=== PATIENT | male | born 1980 | race American Indian/Alaskan Native ===

== ENCOUNTER 2017-08-14 18:19 | Emergency (ER) | payer MEDICAID ==
--- NOTE | 2017-08-14 19:21 | C.PDOC ---
History Of Present Illness 37-year-old male, presents to the emergency department with complaints of headache and dizziness. Patient states he stopped taking his blood pressure medications because he ran out. Denies nausea/vomiting, back pain, neck pain, shortness of breath, chest pain, numbness/weakness, or any other associated symptoms. No other complaints at this time. Chief Complaint (Nursing): Dizziness/Lightheaded History Per: Patient History/Exam Limitations: no limitations Past Medical History Reviewed: Historical Data, Nursing Documentation, Vital Signs Vital Signs: Last Vital Signs Temp 99.2 F 08/14/17 18:37 Pulse 96 H 08/14/17 19:53 Resp 15 08/14/17 19:53 BP 157/100 H 08/14/17 20:13 Pulse Ox 95 08/14/17 21:24 - Medical History PMH: Anemia (sICKLE CELL TRAIT), Diabetes, HTN, Hypercholesterolemia, Schizophrenia, Sickle Cell Disease (traits only) - [facility] Procedures SUTURE OF LIP LACERATION (08/08/14) Family History: States: No Known Family Hx - Social History Hx Tobacco Use: No Hx Alcohol Use: No Hx Substance Use: No - Immunization History Hx Tetanus Toxoid Vaccination: Yes Hx Influenza Vaccination: No Hx Pneumococcal Vaccination: No Review Of Systems Constitutional: Negative for: Fever, Chills Cardiovascular: Negative for: Chest Pain, Palpitations Respiratory: Negative for: Shortness of Breath Gastrointestinal: Negative for: Nausea, Vomiting Musculoskeletal: Negative for: Neck Pain, Back Pain Skin: Negative for: Rash Neurological: Negative for: Weakness, Numbness, Headache, Dizziness Physical Exam - Physical Exam Appears: Non-toxic, No Acute Distress Skin: Normal Color, Warm, Dry, No Rash Head: Normacephalic Eye(s): bilateral: PERRL Nose: Normal Oral Mucosa: Moist Lips: Normal Appearing Neck: Normal ROM, Supple Cardiovascular: Rhythm Regular, No Murmur Respiratory: Normal Breath Sounds, No Accessory Muscle Use Extremity: Normal ROM, No Deformity, No Swelling Neurological/Psych: Oriented x3, Normal Speech ED Course And Treatment - Laboratory Results Result Diagrams: 08/14/17 19:27 08/14/17 19:27 O2 Sat by Pulse Oximetry: 95 (RA) Pulse Ox Interpretation: Normal - CT Scan/US CT head Other Rad Studies (CT/US): Read By Radiologist, Radiology Report Reviewed CT/US Interpretation: EXAM: CT Head Without Intravenous Contrast. EXAM DATE/ TIME: Exam ordered 08/14/2017 7:11 PM. CLINICAL HISTORY: 37 years old, male; Signs and symptoms; Other: Headache with HTN. TECHNIQUE: Axial computed tomography images of the head/brain without intravenous contrast. All CT scans at. this facility use one or more dose reduction techniques, viz.: automated exposure control; ma/kV. adjustment per patient size (including targeted exams where dose is matched to indication; i.e. head);. or iterative reconstruction technique. Coronal and sagittal reformatted images were created and reviewed. COMPARISON: No relevant prior studies available. FINDINGS: Brain: Unremarkable. No hemorrhage. No significant white matter disease. No edema. Ventricles: Unremarkable. No ventriculomegaly. Bones/joints: Unremarkable. No acute fracture. Soft tissues: Unremarkable. Sinuses: Unremarkable as visualized. No acute sinusitis. Mastoid air cells: Unremarkable as visualized. No mastoid effusion. IMPRESSION:Normal head/brain CT. Thank you for allowing us to participate in the care of your patient. Dictated and Authenticated by: Rosalia Cortes MD. 08/14/2017 7:54 PM Eastern Time ([place] & [place]) Medical Decision Making Medical Decision Making: Plan: * CT Head * EKG * Bloodwork * Toradol * UA * Reassess and Disposition Disposition Counseled Patient/Family Regarding: Diagnosis - Disposition Referrals: [facility] [Outside] Disposition: HOME/ ROUTINE Disposition Time: 21:24 Condition: STABLE Prescriptions: Carvedilol [Coreg] 12.5 mg PO BID #30 tab MetFORMIN [glucoPHAGE] 500 mg PO DAILY #30 tab Naproxen 375 mg PO TIDPC #20 tablet Instructions: Type 2 Diabetes, High Blood Pressure (DC), Headache, Adult (DC) Forms: [employer] (Faroese) - POA Present On Arrival: None - Clinical Impression Clinical Impression: Headache, Hypertension, Diabetes mellitus - Scribe Statement The provider has reviewed the documentation as recorded by the Scribe (emanuel Poon) All medical record entries made by the Scribe were at my direction and personally dictated by me. I have reviewed the chart and agree that the record accurately reflects my personal performance of the history, physical exam, medical decision making, and the department course for this patient. I have also personally directed, reviewed, and agree with the discharge instructions and disposition.
[2017-08-14 19:30] LABS: BASO # 0.1 K/uL (0.0-0.2); BASO % 0.6 % (0.0-2.0); EOS # 0.1 K/uL (0.0-0.7); EOS % 0.9 % (0.0-4.0); HEMOGLOBIN 13.4 g/dL (12.0-18.0); LYMPH # 2.4 K/uL (1.0-4.3); LYMPH % 18.7 % (20.0-40.0); MEAN CELL VOLUME 77.7 fL (80.0-94.0); MEAN CORPUSCULAR HEMOGLOBIN 26.4 pg (27.0-31.0); MEAN CORPUSCULAR HGB CONC 33.9 g/dL (33.0-37.0); MONO % 7.6 % (0.0-10.0); NEUT # 9.1 K/uL (1.8-7.0); NEUT % 72.2 % (50.0-75.0); NRBC % 0.1 % (0.0-2.0); RBC 5.08 Mil/uL (4.40-5.90); RED CELL DISTRIBUTION WIDTH 13.2 % (11.5-14.5); WHITE BLOOD COUNT 12.7 K/uL (4.8-10.8)
[2017-08-14 19:42] LABS: ALB/GLOB RATIO 0.9 (1.0-2.1); ALBUMIN 3.4 g/dL (3.5-5.0); ALT/SGPT 19 U/L (21-72); AST/SGOT 14 U/L (17-59); BLOOD UREA NITROGEN 8 mg/dL (9-20); CALCIUM 8.7 mg/dl (8.6-10.4); GFR AFRICAN-AMERICAN > 60; GFR NON-AFRICAN AMERICAN > 60
[2017-08-14] MEDS ORDERED: (Novolin R) Insulin Human Regular 100 units/ml vial SC ONE (19:45)
--- NOTE | 2017-08-14 19:54 | CT ---
EXAM: CT Head Without Intravenous Contrast EXAM DATE/TIME: Exam ordered 08/14/2017 7:11 PM CLINICAL HISTORY: 37 years old, male; Signs and symptoms; Other: Headache with HTN TECHNIQUE: Axial computed tomography images of the head/brain without intravenous contrast. All CT scans at this facility use one or more dose reduction techniques, viz.: automated exposure control; ma/kV adjustment per patient size (including targeted exams where dose is matched to indication; i.e. head); or iterative reconstruction technique. Coronal and sagittal reformatted images were created and reviewed. COMPARISON: No relevant prior studies available. FINDINGS: Brain: Unremarkable. No hemorrhage. No significant white matter disease. No edema. Ventricles: Unremarkable. No ventriculomegaly. Bones/joints: Unremarkable. No acute fracture. Soft tissues: Unremarkable. Sinuses: Unremarkable as visualized. No acute sinusitis. Mastoid air cells: Unremarkable as visualized. No mastoid effusion. IMPRESSION: Normal head/brain CT.
[2017-08-14] MEDS ORDERED: (Novolin R) Insulin Human Regular 100 units/ml vial ONE (20:10)
[2017-08-14] MEDS ORDERED: Potassium Chloride 10 mEq ER Tab PO STA (20:22)
[2017-08-14] MEDS ORDERED: Potassium Chloride 10 mEq ER Tab PO ONE (20:32)
[2017-08-14 21:39] VITALS: BP 145/103; PULSE 88; RESP 17; TEMP 97.9; O2SAT 96
== END 2017-08-14 21:39 | disposition home or self-care (01) ==
LOC: C.ER 18:19
DX: I10 Essential (primary) hypertension (principal); E11.9 Type 2 diabetes mellitus without complications; R51 Headache; E87.6 Hypokalemia
CPT/HCPCS: 70450; 80053; 85025; 96374; 99285; J1885

== ENCOUNTER 2018-06-12 20:32 | Emergency (ER) | payer MEDICAID ==
--- NOTE | 2018-06-12 21:19 | C.PDOC ---
History Of Present Illness Patient presents to the ER with a complaint of SOB and chest pain intermittently for the past 3 days that worsens when he walks. He is noncomplaint with blood pressure and diabetes medication. Patient is speaking in complete sentences. Denies nausea, vomiting, fever or chills. Time Seen by Provider: 06/12/18 21:18 Chief Complaint (Nursing): Chest Pain History Per: Patient History/Exam Limitations: no limitations Onset/Duration Of Symptoms: Days (3), Intermittent Episodes Current Symptoms Are (Timing): Still Present Severity: Moderate Pain Scale Rating Of: 4 Recent travel outside of the [place]: No Additional History Per: Patient Past Medical History Reviewed: Historical Data, Nursing Documentation, Vital Signs Vital Signs: Last Vital Signs Temp 98.2 F 06/12/18 20:39 Pulse 117 H 06/12/18 20:39 Resp 20 06/12/18 20:39 BP 179/128 H 06/12/18 20:39 Pulse Ox 97 06/12/18 20:39 - Medical History PMH: Anemia (sICKLE CELL TRAIT), Asthma, Diabetes, HTN, Hypercholesterolemia, Schizophrenia, Sickle Cell Disease (traits only) - [facility] Procedures SUTURE OF LIP LACERATION (08/08/14) Family History: States: No Known Family Hx - Social History Hx Tobacco Use: No Hx Alcohol Use: No Hx Substance Use: Yes - Immunization History Hx Tetanus Toxoid Vaccination: No Hx Influenza Vaccination: No Hx Pneumococcal Vaccination: No Review Of Systems Constitutional: Negative for: Fever, Chills Cardiovascular: Positive for: Chest Pain Respiratory: Positive for: Shortness of Breath Gastrointestinal: Negative for: Nausea, Vomiting Neurological: Negative for: Weakness, Numbness Physical Exam - Physical Exam Appears: Non-toxic Skin: Warm, Dry Head: Normacephalic Eye(s): bilateral: Normal Inspection Oral Mucosa: Moist Neck: Trachea Midline, Supple Chest: Symmetrical, No Tenderness Cardiovascular: Rhythm Regular Respiratory: Decreased Breath Sounds, Rales, No Rhonchi, No Wheezing Gastrointestinal/Abdominal: Soft, No Tenderness, Other (Obese) Back: Normal Inspection Extremity: Pedal Edema (Bilateral trace) Extremity: Bilateral: Atraumatic Pulses: Left Dorsalis Pedis: Normal, Right Dorsalis Pedis: Normal Neurological/Psych: Oriented x3 Gait: Steady ED Course And Treatment - Laboratory Results Result Diagrams: 06/12/18 21:51 06/12/18 21:51 ECG: Interpreted By Me, Viewed By Me ECG Rhythm: Sinus Rhythm (112), Nonspecific Changes O2 Sat by Pulse Oximetry: 97 (Room air) Pulse Ox Interpretation: Normal - Radiology CXR: Interpreted by Me, Viewed By Me Progress Note: Blood work, CTA, EKG, and urinalysis ordered. Aspirin administered. Disposition Discussed With Dr.: Juanjose Villalta Jr. Comment: accepted the pt on his service and took over the care at 11:49 PM Doctor Will See Patient In The: ED Counseled Patient/Family Regarding: Studies Performed, Diagnosis - Disposition Disposition: HOSPITALIZED Disposition Time: :19 Condition: FAIR Forms: [employer] (Bulgarian) - Clinical Impression Clinical Impression: Chest pain, CHF (congestive heart failure) - Scribe Statement The provider has reviewed the documentation as recorded by the Scribe Scott Reynoso All medical record entries made by the Scribe were at my direction and personally dictated by me. I have reviewed the chart and agree that the record accurately reflects my personal performance of the history, physical exam, medical decision making, and the department course for this patient. I have also personally directed, reviewed, and agree with the discharge instructions and disposition. Decision To Admit - Pt Status Changed To: Hospital Disposition Of: Inpatient - Admit Certification Admit to Inpatient:: After my assessment, the patient will require hospitalization for at least two midnights. This is because of the severity of symptoms shown, intensity of services needed, and/or the medical risk in this patient being treated as an outpatient. - InPatient: Physician Admission Certification: I certify that this patient requires 2 or more midnights of care for the following reason:: After my assessment, the patient will require hospitalization for at least two midnights. This is because of the severity of symptoms shown, intensity of services needed, and/or the medical risk in this patient being treated as an outpatient. - . Bed Request Type: Telemetry Admitting Physician: Juanjose Villalta Jr. Patient Diagnosis: Chest pain, CHF (congestive heart failure)
[2018-06-12] MEDS ORDERED: Aspirin 325 mg EC Tablets PO STA (21:28)
[2018-06-12] MEDS ORDERED: Aspirin 325 mg EC Tablets PO ONE (21:38)
[2018-06-12] MEDS ORDERED: Iodixanol 320 MG/ML 100 ML BOTTLE IV ONE (21:44)
[2018-06-12 21:58] LABS: BASO # 0.1 K/uL (0.0-0.2); BASO % 1.1 % (0.0-2.0); EOS # 0.2 K/uL (0.0-0.7); EOS % 1.4 % (0.0-4.0); HEMOGLOBIN 12.7 g/dL (12.0-18.0); LYMPH # 3.1 K/uL (1.0-4.3); LYMPH % 27.8 % (20.0-40.0); MEAN CELL VOLUME 78.8 fL (80.0-94.0); MEAN CORPUSCULAR HEMOGLOBIN 26.6 pg (27.0-31.0); MEAN CORPUSCULAR HGB CONC 33.8 g/dL (33.0-37.0); MEAN PLATELET VOLUME 6.9 fL (7.2-11.7); MONO # 0.9 K/uL (0.0-0.8); MONO % 8.2 % (0.0-10.0); NEUT # 6.8 K/uL (1.8-7.0); NEUT % 61.5 % (50.0-75.0); RBC 4.77 Mil/uL (4.40-5.90); RED CELL DISTRIBUTION WIDTH 13.5 % (11.5-14.5)
[2018-06-12 22:10] LABS: ALB/GLOB RATIO 1.2 (1.0-2.1); ALBUMIN 3.8 g/dL (3.5-5.0); AST/SGOT 14 U/L (17-59); BLOOD UREA NITROGEN 17 mg/dL (9-20); CALCIUM 8.8 mg/dl (8.6-10.4); GFR NON-AFRICAN AMERICAN > 60; LIPASE 165 U/L (23-300)
[2018-06-12 22:17] LABS: ALT/SGPT < 6 U/L (21-72)
[2018-06-12 22:19] LABS: ABG ALLEN TEST POS; ARTERIAL BLOOD GAS HCO3 24.8 mmol/L (21-28); ARTERIAL BLOOD GAS O2 SAT 94.9 % (95-98); ARTERIAL BLOOD GAS PCO2 39 mm/Hg (35-45); ARTERIAL BLOOD GAS PH 7.41 (7.35-7.45); ARTERIAL BLOOD GAS PO2 59 mm/Hg (80-100); ARTERIAL BLOOD GAS TCO2 25.9 mmol/L (22-28)
[2018-06-12 22:21] LABS: B-TYPE NATRIURETIC PEPTIDE 3070 pg/mL (0-450)
[2018-06-12 23:57] LABS: URINE BACTERIA RARE (<OCC); URINE BILIRUBIN NEGATIVE (NEGATIVE); URINE BLOOD 1+ (NEGATIVE); URINE CLARITY Clear (Clear); URINE COLOR Straw (YELLOW); URINE GLUCOSE (UA) NORMAL (Normal); URINE LEUKOCYTE ESTERASE NEG Leu/uL (Negative); URINE PROTEIN 2+ mg/dL (NEGATIVE); URINE UROBILINOGEN NORMAL mg/dL (0.2-1.0)
--- NOTE | 2018-06-13 00:32 | CP.PCM.HP ---
History of Present Illness - History of Present Illness History of Present Illness: PGY-1 History and Physical for Dr. Villalta Patient is a 37 year old M with past medical history of HTN, HLD, DM, asthma, sickle cell trait, schizophrenia presenting to ED for intermittent chest pain, sob, dyspnea on exertion for the past 3 days. Chest pain is substernal, nonradiating, comes and goes. Patient denies any chest pain currently. Shortness of breath is worsened on physical exertion, also endorses orthopnea, sleeps with head propped on pillows and clothing sometimes. Of note, patient is noncompliant with BM and DM meds, states he has not refilled his meds for weeks. No fevers/chills, headaches, dizziness, syncope, changes in vision, palpitations, cough, abdominal pain, n/v/d/c, dysuria, or changes in stool. PMHx: HTN, HLD, DM, asthma, sickle cell trait, schizophrenia, medication noncompliance PSHx: none Allergies: NKDA Home Medications: Please call [facility] pharmacy, [facility] in AM to verify home meds FHx: unknown Social Hx: social drinker; smokes 1 ppd for several years, smokes marijuana "every 3 months", denies other illicit drug use PMD: Dr. Llamas Present on Admission - Present on Admission Any Indicators Present on Admission: Yes History of Uncontrolled Diabetes: Yes Review of Systems - Constitutional Constitutional: absent: Chills, Fever, Headache - EENT Eyes: absent: Change in Vision - Cardiovascular Cardiovascular: Chest Pain, Dyspnea, Dyspnea on Exertion, Orthopnea, Pedal Edema. absent: Diaphoresis, Lightheadedness, Syncope - Respiratory Respiratory: Dyspnea, Dyspnea on Exertion. absent: Cough, Hemoptysis, Wheezing, Stridor - Gastrointestinal Gastrointestinal: Bloating. absent: Abdominal Pain, Diarrhea, Nausea, Vomiting - Genitourinary Genitourinary: absent: Difficulty Urinating, Dysuria, Urinary Frequency, Urinary Urgency - Musculoskeletal Musculoskeletal: absent: Limited Range of Motion, Muscle Weakness, Numbness, Radiating Pain into Limb, Tingling - Integumentary Integumentary: As Per HPI - Neurological Neurological: absent: Dizziness, Numbness, Headaches, Sensory Deficit, Syncope, Tingling, Weakness - Psychiatric Psychiatric: As Per HPI. absent: Behavioral Changes - Endocrine Endocrine: As Per HPI. absent: Change in Body Appearance Past Patient History - Infectious Disease Hx of Infectious Diseases: None - Past Social History Smoking Status: Heavy Smoker > 10 Cigarettes Daily - CARDIAC Hx Hypercholesterolemia: Yes Hx Hypertension: Yes - PULMONARY Hx Asthma: Yes - ENDOCRINE/METABOLIC Hx Endocrine Disorders: Yes Hx Diabetes Mellitus Type 2: Yes - HEMATOLOGICAL/ONCOLOGICAL Hx Anemia: Yes (sICKLE CELL TRAIT) Hx Sickle Cell Disease: Yes (traits only) - PSYCHIATRIC Hx Schizophrenia: Yes Hx Substance Use: Yes - SURGICAL HISTORY Hx Surgeries: No - ANESTHESIA Hx Anesthesia: No Meds Allergies/Adverse Reactions: Allergies Allergy/AdvReac Type Severity Reaction Status Date / Time No Known Allergies Allergy Verified 06/12/18 20:42 Physical Exam - Constitutional Appears: Non-toxic, No Acute Distress - Head Exam Head Exam: ATRAUMATIC, NORMAL INSPECTION, NORMOCEPHALIC - Eye Exam Eye Exam: EOMI, Normal appearance Pupil Exam: NORMAL ACCOMODATION - ENT Exam ENT Exam: Mucous Membranes Moist, Normal Exam - Neck Exam Neck exam: Positive for: Full Rom, Normal Inspection. Negative for: Tenderness - Respiratory Exam Respiratory Exam: Decreased Breath Sounds, Rales, NORMAL BREATHING PATTERN. absent: Accessory Muscle Use, Rhonchi, Wheezes, Respiratory Distress, Stridor - Cardiovascular Exam Cardiovascular Exam: Tachycardia, +S1, +S2 - GI/Abdominal Exam GI & Abdominal Exam: Distended, Normal Bowel Sounds, Soft. absent: Firm, Guarding, Hernia, Rebound, Rigid, Tenderness Additional comments: obese - Extremities Exam Extremities exam: Positive for: normal capillary refill, normal inspection, pedal edema, pedal pulses present. Negative for: calf tenderness - Back Exam Back exam: NORMAL INSPECTION. absent: CVA tenderness (L), CVA tenderness (R) - Neurological Exam Neurological exam: Alert, CN II-XII Intact, Oriented x3 - Psychiatric Exam Psychiatric exam: Normal Affect, Normal Mood - Skin Skin Exam: Dry, Intact, Normal Color, Warm Results - Vital Signs Recent Vital Signs: Last Vital Signs Temp 98.2 F 06/12/18 20:39 Pulse 117 H 06/12/18 20:39 Resp 20 06/12/18 20:39 BP 179/128 H 06/12/18 20:39 Pulse Ox 97 06/13/18 00:01 - Labs Result Diagrams: 06/12/18 21:51 06/12/18 21:51 Labs: Laboratory Results - last 24 hr 06/12/18 06/12/18 06/12/18 21:51 21:51 21:51 WBC 11.0 H RBC 4.77 Hgb 12.7 Hct 37.6 MCV 78.8 L MCH 26.6 L MCHC 33.8 RDW 13.5 Plt Count 333 MPV 6.9 L Neut % (Auto) 61.5 Lymph % (Auto) 27.8 Menard % (Auto) 8.2 Eos % (Auto) 1.4 Baso % (Auto) 1.1 Neut # (Auto) 6.8 Lymph # (Auto) 3.1 Menard # (Auto) 0.9 H Eos # (Auto) 0.2 Baso # (Auto) 0.1 Puncture Site pCO2 pO2 HCO3 ABG pH ABG Total CO2 ABG O2 Saturation ABG Base Excess Moses Test ABG Potassium A-a O2 Difference Respiratory Index Glucose Lactate FiO2 Sodium 136 Potassium 3.6 Chloride 103 Carbon Dioxide 25 Anion Gap 11 BUN 17 Creatinine 1.3 Est GFR ( Amer) > 60 Est GFR (Non-Af Amer) > 60 Random Glucose 234 H Hemoglobin A1c 8.5 H Calcium 8.8 Total Bilirubin 0.4 AST 14 L ALT < 6 L D Alkaline Phosphatase 98 Troponin I 0.0840 NT-Pro-B Natriuret Pep 3070 H Total Protein 7.1 Albumin 3.8 Globulin 3.3 Albumin/Globulin Ratio 1.2 Lipase 165 Arterial Blood Potassium 06/12/18 22:15 WBC RBC Hgb Hct MCV MCH MCHC RDW Plt Count MPV Neut % (Auto) Lymph % (Auto) Menard % (Auto) Eos % (Auto) Baso % (Auto) Neut # (Auto) Lymph # (Auto) Menard # (Auto) Eos # (Auto) Baso # (Auto) Puncture Site Rradial pCO2 39 pO2 59 L HCO3 24.8 ABG pH 7.41 ABG Total CO2 25.9 ABG O2 Saturation 94.9 L ABG Base Excess 0.1 Moses Test Pos ABG Potassium 3.2 L A-a O2 Difference 42.0 Respiratory Index 0.7 Glucose 216 H Lactate 1.2 FiO2 21.0 Sodium 137.0 Potassium Chloride 105.0 Carbon Dioxide Anion Gap BUN Creatinine Est GFR ( Amer) Est GFR (Non-Af Amer) Random Glucose Hemoglobin A1c Calcium Total Bilirubin AST ALT Alkaline Phosphatase Troponin I NT-Pro-B Natriuret Pep Total Protein Albumin Globulin Albumin/Globulin Ratio Lipase Arterial Blood Potassium 3.2 L Assessment & Plan - Assessment and Plan (Free Text) Assessment: 37 year old AA male with pmhx of HTN, HLD, DM, asthma, schizophrenia presenting to ED with intermittent chest pain, MENDOZA, orthopnea x 3 days. Plan: Chest pain, r/o ACS -s/p ASA 81 mg x1 in ED -patient in no acute distress, denies cp currently -Trop x 1 negative; f/u serial FARSHAD panel q8h -EKG: sinus tachy at 112 bpm, biatrial enlargement, Rightward axis -f/u repeat EKG -f/u CXR -Chest CT ordered by ED to r/o PE -ASA 81 mg PO daily -Crestor 5 mg PO HS Worsening SOB, MENDOZA, orthopnea likely 2/2 CHF exacerbation -patient noncompliant with HTN/DM meds -s/p lasix 40 mg IVP x1 in ED -BNP 3070 -f/u ECHO -I/Os -keep head of bed elevated 45 degrees -Lasix 40 mg IVP daily -Coreg 12.5 mg PO BID -Losartan 25 mg PO daily -Aldactone 25 mg PO BID Uncontrolled DM -pt noncomplaint with meds -home metformin held -A1C 8.5 -ISS high dose -accuchecks ACHS -hypoglycemic protocol HTN -patient noncomplaint with meds; call pharmacy in AM to verify all meds -Losartain 25 mg PO daily -Aldactone 25 mg PO BID -Coreg 12.5 mg PO BID HLD -f/u lipid panel -Crestor 5 mg PO HS Hx of Schizophrenia -home Invega 156 IM qmonthly -pt states he already received dose for month Hx of Asthma -duonebs 3 mL q4 prn -O2 via NL prn PPx, Diet, Disposition -DVT ppx: scds, lovenox -GI ppx: not indicated -Diet: HHD, salt restriction -PT/OT on board Further recs as per Dr. Ambar Carreno DO, PGY-1
[2018-06-13] MEDS ORDERED: Dextrose 50% SYRINGE Inj (50 ml) IV PRN (01:29)
[2018-06-13] MEDS ORDERED: Glucagon Recombinant 1 mg Inj IM PRN (01:29)
[2018-06-13] MEDS ORDERED: Albuterol-Ipratrop 3 mg / 0.5 (3 ml) UD INH PRN (01:58)
[2018-06-13 04:57] LABS: BARBITURATES, UR NEGATIVE (NEGATIVE); BENZODIAZEPINES, UR NEGATIVE (NEGATIVE); OPIATES, UR NEGATIVE (NEGATIVE); PHENCYCLIDINE, UR NEGATIVE (NEGATIVE)
[2018-06-13 05:05] LABS: HDL CHOLESTEROL 38 mg/dL (30-70)
[2018-06-13 05:15] LABS: LDL CHOLESTEROL 241 mg/dL (0-129)
[2018-06-13 05:52] LABS: BASO # 0.1 K/uL (0.0-0.2); BASO % 0.7 % (0.0-2.0); EOS # 0.1 K/uL (0.0-0.7); HEMOGLOBIN 12.8 g/dL (12.0-18.0); LYMPH # 2.4 K/uL (1.0-4.3); LYMPH % 23.3 % (20.0-40.0); MEAN CELL VOLUME 78.4 fL (80.0-94.0); MEAN CORPUSCULAR HEMOGLOBIN 26.8 pg (27.0-31.0); MEAN CORPUSCULAR HGB CONC 34.2 g/dL (33.0-37.0); MEAN PLATELET VOLUME 7.4 fL (7.2-11.7); MONO # 1.1 K/uL (0.0-0.8); MONO % 10.6 % (0.0-10.0); NEUT # 6.7 K/uL (1.8-7.0); NEUT % 64.4 % (50.0-75.0); RBC 4.76 Mil/uL (4.40-5.90); RED CELL DISTRIBUTION WIDTH 13.4 % (11.5-14.5); WHITE BLOOD COUNT 10.4 K/uL (4.8-10.8)
[2018-06-13 06:21] LABS: CK-MB 0.86 ng/mL (0.0-3.38)
[2018-06-13] MEDS: (Novolin R) Insulin Human Regular 100 units/ml vial SC SCH ×2 (09:28→12:30)
[2018-06-13] MEDS ORDERED: (Novolin R) Insulin Human Regular 100 units/ml vial ONE ×2 (09:31→12:26)
[2018-06-13] MEDS ORDERED: Enoxaparin 40 mg Syringe SC SCH (10:00)
--- NOTE | 2018-06-13 10:38 | RAD ---
Date of service: 06/13/2018 HISTORY: chest pain COMPARISON: Include an with chest 08/31/2012. FINDINGS: LUNGS: Poor inspiratory effort. Crowding of the bronchovascular markings is seen at the bilateral bases. No acute infiltrate identified bilaterally. PLEURA: No significant pleural effusion identified, no pneumothorax apparent. CARDIOVASCULAR: No aortic atherosclerotic calcification present. Cardiac size difficult to evaluate due to frontal technique and poor inspiration. Cardiomegaly not completely excluded. No pulmonary vascular congestion. OSSEOUS STRUCTURES: No significant abnormalities. VISUALIZED UPPER ABDOMEN: Normal. OTHER FINDINGS: None. IMPRESSION: No acute infiltrate appreciated bilaterally, pleural effusion or pneumothorax. Crowding of the bronchovascular markings is felt to be a function of poor inspiratory effort. No pulmonary vascular congestion. Limited evaluation of cardiac size. Please see details above.
--- NOTE | 2018-06-13 11:47 | CT ---
Date of service: 06/12/2018 PROCEDURE: CT Chest with contrast (Pulmonary Angiogram) HISTORY: Chest pain COMPARISON: He needs me on TECHNIQUE: Contiguous helical/transaxial computed tomography images were obtained of the chest in the pulmonary arterial phase of enhancement. Coronal and sagittal reformatted images were created and reviewed. Intravenous contrast dose: 100 cc Visipaque 320 Radiation dose: Total exam DLP = 632.66 mGy-cm. This CT exam was performed using one or more of the following dose reduction techniques: Automated exposure control, adjustment of the mA and/or kV according to patient size, and/or use of iterative reconstruction technique. FINDINGS: PULMONARY ARTERIES: The visualized pulmonary trunk, right and left main, lobar, segmental and proximal subsegmental branches the relatively well past the filling defects seen to suggest acute central pulmonary embolus. Pulmonary trunk measures approximately 3.25 cm.. AORTA: No acute findings. No thoracic aortic aneurysm. Ascending thoracic aorta measures approximately 3.3 cm and descending thoracic aorta measures approximately 3.0 cm. No aortic atherosclerotic calcification or mural plaque present. LUNGS: Nodular atelectasis and/or scarring left lung base extending into the left lingular region. Lesser changes are seen in the right lung base and middle lobe. In addition, there also mild passive/dependent type atelectatic changes the posterior lower lung packer.. Nodular pleural-based opacities seen in both lung apices as well as upper lobes right greater than left as well as superior aspect right lower lobe. PLEURAL SPACES: Unremarkable. No effusion or pneumothorax. HEART: Heart is enlarged. Small pericardial effusion. LYMPH NODES: Multiple small to medium sized/enlarged mediastinal lymph nodes including enlarged subcarinal lymph nodes. In addition, there are multiple small to medium-sized bilateral hilar lymph nodes. Findings are nonspecific and could be reactive. Follow-up CT scan in 2 months recommended to assess resolution... Trachea is midline and patent with no large central endoluminal lesions. BONES, CHEST WALL: Minor multilevel degenerative spondylosis of the thoracic spine. OTHER FINDINGS: Unremarkable. IMPRESSION: No evidence of acute central pulmonary embolus. Cardiomegaly with small pericardial effusion. Multiple small to enlarged mediastinal and small to medium-sized bilateral hilar lymph nodes possibly reactive however follow-up of CT scan in 2 months recommended to assess resolution. There are areas of atelectasis/scarring seen throughout both lower lobes some of which appear nodular in the left lung base as well as nodular opacities-scarring changes scattered throughout the lung apices and upper lung packer right greater than left
[2018-06-13 13:25] VITALS: TEMP 98.7
[2018-06-13 13:55] LABS: CK-MB 0.72 ng/mL (0.0-3.38); TROPONIN I 0.06 ng/mL (0.00-0.120)
--- NOTE | 2018-06-13 14:17 | CP.PCM.PN ---
Subjective - Date & Time of Evaluation Date of Evaluation: 06/13/18 Time of Evaluation: 14:38 - Subjective Subjective: PGY-[address] Villalta Patient seen and examined at bedside. No acute events overnight. Patient reports both his chest pain and shortness of breath have resolved. He endorsed that he has not taken any of his medications in at least 2 weeks, and was unsure what meds he is supposed to be taking. I called patient's pharmacy and confirmed his home medications. Pt denies chest pain, headache, n/v/d/c, dizziness. Objective - Vital Signs/Intake and Output Vital Signs (last 24 hours): Temp Pulse Resp BP Pulse Ox 98.7 F 84 16 145/89 95 06/13/18 13:24 06/13/18 13:24 06/13/18 13:24 06/13/18 13:24 06/13/18 13:24 Intake and Output: 06/13/18 06/13/18 06:59 18:59 Intake Total 300 Output Total 2200 Balance -1900 - Medications Medications: Current Medications Albuterol/Ipratropium (Duoneb 3 Mg/0.5 Mg (3 Ml) Ud) 3 ml INH RQ4 PRN PRN Reason: Shortness of Breath Aspirin (Aspirin Chewable) 81 mg PO DAILY [facility] Last Admin: 06/13/18 10:27 Dose: 81 mg Carvedilol (Coreg) 12.5 mg PO BID [facility] Last Admin: 06/13/18 10:27 Dose: 12.5 mg Dextrose (Dextrose 50% Inj) 0 ml IV STAT PRN; Protocol PRN Reason: Hypoglycemia Protocol Dextrose (Glutose 15) 0 gm PO ONCE PRN; Protocol PRN Reason: Hypoglycemia Protocol Enoxaparin Sodium (Lovenox) 40 mg SC DAILY [facility] Last Admin: 06/13/18 10:28 Dose: 40 mg Furosemide (Lasix) 40 mg IVP DAILY [facility] Last Admin: 06/13/18 10:25 Dose: 40 mg Glucagon (Glucagen Diagnostic Kit) 0 mg IM STAT PRN; Protocol PRN Reason: Hypoglycemia Protocol Hydrochlorothiazide (Hydrodiuril) 25 mg PO DAILY [facility] Dextrose (Dextrose 5% In Water 1000 Ml) 1,000 mls @ 0 mls/hr IV .Q0M PRN; Protocol PRN Reason: Hypoglycemia Protocol Insulin Human Regular (Novolin R) 0 unit SC ACHS [facility]; Protocol Last Admin: 06/13/18 09:28 Dose: 4 unit Losartan Potassium (Cozaar) 100 mg PO DAILY [facility] Pneumococcal Polyvalent Vaccine (Pneumovax 23 Vaccine) 0.5 ml IM .ONCE ONE Stop: 06/14/18 10:01 Rosuvastatin Calcium (Crestor) 20 mg PO HS SKY - Labs Labs: 06/13/18 05:14 - Constitutional Appears: Non-toxic, No Acute Distress, Other (obese) - Head Exam Head Exam: ATRAUMATIC, NORMOCEPHALIC - Eye Exam Eye Exam: EOMI - ENT Exam ENT Exam: Mucous Membranes Moist - Respiratory Exam Respiratory Exam: Clear to Ausculation Bilateral, NORMAL BREATHING PATTERN. absent: Accessory Muscle Use, Rhonchi, Wheezes, Respiratory Distress - Cardiovascular Exam Cardiovascular Exam: REGULAR RHYTHM, +S1, +S2 - GI/Abdominal Exam GI & Abdominal Exam: Soft, Normal Bowel Sounds. absent: Tenderness Additional comments: Obese - Extremities Exam Extremities Exam: absent: Pedal Edema, Tenderness - Neurological Exam Neurological Exam: Alert, Awake, Oriented x3 - Psychiatric Exam Psychiatric exam: Normal Affect, Normal Mood - Skin Skin Exam: Dry, Intact Assessment and Plan - Assessment and Plan (Free Text) Assessment: Assessment: 37 year old AA male with pmhx of HTN, HLD, DM, asthma, schizophrenia presenting to ED with intermittent chest pain, MENDOZA, orthopnea x 3 days. Plan: Home medications obtained from [facility] pharmacy on [facility] [place]: -HCTZ 25 mg PO daily -Losartan 100 mg PO daily -Atorvastatin 80 mg PO daily -Norvasc 10 mg PO daily -Coreg 25 mg PO daily --> made 12.5 BID -Humalog 75/25 25 U twice daily + 10 U HS Chest pain, r/o ACS -s/p ASA 81 mg x1 in ED -patient in no acute distress, denies cp currently -Trop x 2 negative; f/u third marek (Q8h) -EKG: sinus tachy at 112 bpm, biatrial enlargement, Rightward axis -CXR 06/12 - No acute infiltrate appreciated bilaterally, pleural effusion or pneumothorax. Crowding of the bronchovascular markings is felt to be a function of poor inspiratory effort. No pulmonary vascular congestion. Limited evaluation of cardiac size. Please see details above. -Chest CT 06/12: No evidence of acute central pulmonary embolus. Cardiomegaly with small pericardial effusion. Multiple small to enlarged mediastinal and small to medium-sized bilateral hilar lymph nodes possibly reactive however f ollow-up of CT scan in 2 months recommended to assess resolution. There are areas of atelectasis/scarring seen throughout both lower lobes some of which appear nodular in the left lung base as well as nodular opacities-scarring changes scattered throughout the lung apices and upper lung packer right greater than left -ASA 81 mg PO daily -Crestor 20 mg PO HS Worsening SOB, MENDOZA, orthopnea likely 2/2 CHF exacerbation -patient noncompliant with HTN/DM meds -s/p lasix 40 mg IVP x1 in ED -BNP 3070 -ECHO 06/13 - pending orfficial read -I/Os -keep head of bed elevated 45 degrees Home CHF/HTN meds restarted + lasix: -Lasix 40 mg IVP daily -HCTZ 25 mg PO daily -Losartan 100 mg PO daily -Crestor 20 mg PO daily -Norvasc 10 mg PO daily -Coreg 12.5 BID Uncontrolled DM -pt noncomplaint with meds -home metformin held -A1C 8.5 -ISS high dose -accuchecks ACHS -hypoglycemic protocol HTN -[facility] pharmacy contacted, home meds restarted with minor adjustments (see top of note for home med list) -HCTZ 25 mg PO daily -Losartan 100 mg PO daily -Crestor 20 mg PO daily -Norvasc 10 mg PO daily -Coreg 12.5 BID HLD -Uncontrolled hyperlipidemia based on lipid panel -Crestor 20 mg PO HS Hx of Schizophrenia -home Invega 156 IM qmonthly -pt states he already received dose for month Hx of Asthma -duonebs 3 mL q4 prn -O2 via NL prn PPx, Diet, Disposition -DVT ppx: scds, lovenox -GI ppx: not indicated -Diet: HHD, salt restriction -PT/OT on board Further recs as per Dr. Ambar Danielle DO, PGY-1
--- NOTE | 2018-06-13 16:05 | CP.PCM.DIS ---
Provider - Provider Date of Admission: 06/12/18 23:41 Attending physician: Juanjose Villalta Jr, MD Time Spent in preparation of Discharge (in minutes): 35 Hospital Course - Lab Results Lab Results: Most Recent Lab Values WBC 10.4 K/uL (4.8-10.8) 06/13/18 05:14 RBC 4.76 Mil/uL (4.40-5.90) 06/13/18 05:14 Hgb 12.8 g/dL (12.0-18.0) 06/13/18 05:14 Hct 37.3 % (35.0-51.0) 06/13/18 05:14 MCV 78.4 fL (80.0-94.0) L 06/13/18 05:14 MCH 26.8 pg (27.0-31.0) L 06/13/18 05:14 MCHC 34.2 g/dL (33.0-37.0) 06/13/18 05:14 RDW 13.4 % (11.5-14.5) 06/13/18 05:14 Plt Count 319 K/uL (130-400) 06/13/18 05:14 MPV 7.4 fL (7.2-11.7) 06/13/18 05:14 Neut % (Auto) 64.4 % (50.0-75.0) 06/13/18 05:14 Lymph % (Auto) 23.3 % (20.0-40.0) 06/13/18 05:14 [place] % (Auto) 10.6 % (0.0-10.0) H 06/13/18 05:14 Eos % (Auto) 1.0 % (0.0-4.0) 06/13/18 05:14 Baso % (Auto) 0.7 % (0.0-2.0) 06/13/18 05:14 Neut # (Auto) 6.7 K/uL (1.8-7.0) 06/13/18 05:14 Lymph # (Auto) 2.4 K/uL (1.0-4.3) 06/13/18 05:14 [place] # (Auto) 1.1 K/uL (0.0-0.8) H 06/13/18 05:14 Eos # (Auto) 0.1 K/uL (0.0-0.7) 06/13/18 05:14 Baso # (Auto) 0.1 K/uL (0.0-0.2) 06/13/18 05:14 Puncture Site Rradial 06/12/18 22:15 pCO2 39 mm/Hg (35-45) 06/12/18 22:15 pO2 59 mm/Hg (80-100) L 06/12/18 22:15 HCO3 24.8 mmol/L (21-28) 06/12/18 22:15 ABG pH 7.41 (7.35-7.45) 06/12/18 22:15 ABG Total CO2 25.9 mmol/L (22-28) 06/12/18 22:15 ABG O2 Saturation 94.9 % (95-98) L 06/12/18 22:15 ABG Base Excess 0.1 mmol/L (-2.0-3.0) 06/12/18 22:15 Moses Test Pos 06/12/18 22:15 ABG Potassium 3.2 mmol/L (3.6-5.2) L 06/12/18 22:15 A-a O2 Difference 42.0 mm/Hg 06/12/18 22:15 Respiratory Index 0.7 06/12/18 22:15 Sodium 137.0 mmol/l (132-148) 06/12/18 22:15 Chloride 105.0 mmol/L (98-107) 06/12/18 22:15 Glucose 216 mg/dl (75-110) H 06/12/18 22:15 Lactate 1.2 mmol/L (0.7-2.1) 06/12/18 22:15 FiO2 21.0 % 06/12/18 22:15 Sodium 136 mmol/L (132-148) 06/12/18 21:51 Potassium 3.6 mmol/L (3.6-5.2) 06/12/18 21:51 Chloride 103 mmol/L (98-107) 06/12/18 21:51 Carbon Dioxide 25 mmol/L (22-30) 06/12/18 21:51 Anion Gap 11 (10-20) 06/12/18 21:51 BUN 17 mg/dL (9-20) 06/12/18 21:51 Creatinine 1.3 mg/dL (0.8-1.5) 06/12/18 21:51 Est GFR ( Amer) > 60 06/12/18 21:51 Est GFR (Non-Af Amer) > 60 06/12/18 21:51 POC Glucose (mg/dL) 234 mg/dL (65-110) H 06/13/18 11:54 Random Glucose 234 mg/dL (75-110) H 06/12/18 21:51 Hemoglobin A1c 8.5 % (4.2-6.5) H 06/13/18 04:35 Calcium 8.8 mg/dl (8.6-10.4) 06/12/18 21:51 Total Bilirubin 0.4 mg/dL (0.2-1.3) 06/12/18 21:51 AST 14 U/L (17-59) L 06/12/18 21:51 ALT < 6 U/L (21-72) L D 06/12/18 21:51 Alkaline Phosphatase 98 U/L (38-126) 06/12/18 21:51 Total Creatine Kinase 91 U/L (55-170) 06/13/18 13:21 CK-MB (Mass) 0.72 ng/mL (0.0-3.38) 06/13/18 13:21 Troponin I 0.0600 ng/mL (0.00-0.120) 06/13/18 13:21 NT-Pro-B Natriuret Pep 3070 pg/mL (0-450) H 06/12/18 21:51 Total Protein 7.1 g/dL (6.3-8.3) 06/12/18 21:51 Albumin 3.8 g/dL (3.5-5.0) 06/12/18 21:51 Globulin 3.3 gm/dL (2.2-3.9) 06/12/18 21:51 Albumin/Globulin Ratio 1.2 (1.0-2.1) 06/12/18 21:51 Triglycerides 294 mg/dL (0-149) H 06/13/18 04:35 Cholesterol 369 mg/dL (0-199) H 06/13/18 04:35 LDL Cholesterol Direct 241 mg/dL (0-129) H 06/13/18 04:35 HDL Cholesterol 38 mg/dL (30-70) 06/13/18 04:35 Lipase 165 U/L (23-300) 06/12/18 21:51 Arterial Blood Potassium 3.2 mmol/L (3.6-5.2) L 06/12/18 22:15 Urine Color Straw (YELLOW) 06/12/18 23:51 Urine Clarity Clear (Clear) 06/12/18 23:51 Urine pH 7.0 (5.0-8.0) 06/12/18 23:51 Ur Specific [place] 1.008 (1.003-1.030) 06/12/18 23:51 Urine Protein 2+ mg/dL (NEGATIVE) H 06/12/18 23:51 Urine Glucose (UA) Normal mg/dL (Normal) 06/12/18 23:51 Urine Ketones Negative mg/dL (NEGATIVE) 06/12/18 23:51 Urine Blood 1+ (NEGATIVE) H 06/12/18 23:51 Urine Nitrate Negative (NEGATIVE) 06/12/18 23:51 Urine Bilirubin Negative (NEGATIVE) 06/12/18 23:51 Urine Urobilinogen Normal mg/dL (0.2-1.0) 06/12/18 23:51 Ur Leukocyte Esterase Neg Shea/uL (Negative) 06/12/18 23:51 Urine WBC (Auto) < 1 /hpf (0-5) 06/12/18 23:51 Urine RBC (Auto) 9 /hpf (0-3) H 06/12/18 23:51 Urine Bacteria Rare (<OCC) 06/12/18 23:51 Urine Opiates Screen Negative (NEGATIVE) 06/13/18 04:35 Urine Methadone Screen Negative (NEGATIVE) 06/13/18 04:35 Ur Barbiturates Screen Negative (NEGATIVE) 06/13/18 04:35 Ur Phencyclidine Scrn Negative (NEGATIVE) 06/13/18 04:35 Ur Amphetamines Screen Negative (NEGATIVE) 06/13/18 04:35 U Benzodiazepines Scrn Negative (NEGATIVE) 06/13/18 04:35 U Oth Cocaine Metabols Negative (NEGATIVE) 06/13/18 04:35 U Cannabinoids Screen Negative (NEGATIVE) 06/13/18 04:35 Alcohol, Quantitative < 10 mg/dl (0-10) 06/13/18 04:35 - Hospital Course Hospital Course: As per admission documentation Patient is a 37 year old M with past medical history of HTN, HLD, DM, asthma, sickle cell trait, schizophrenia presenting to ED for intermittent chest pain, sob, dyspnea on exertion for the past 3 days. Chest pain is substernal, nonradiating, comes and goes. Patient denies any chest pain currently. Shortness of breath is worsened on physical exertion, also endorses orthopnea, sleeps with head propped on pillows and clothing sometimes. Of note, patient is noncompliant with BM and DM meds, states he has not refilled his meds for weeks. No fevers/chills, headaches, dizziness, syncope, changes in vision, palpitations, cough, abdominal pain, n/v/d/c, dysuria, or changes in stool. Hospital course Patient was admitted overnight on 06/12 for chest pain and CHF exacerbation. Patient admits to non-compliance with his medications. Trop negative x 3 (0.0840, 0.0770 and 0.0600). Pro BNP 3070. An ECHO was order, official read pending. Imaging: -EKG: sinus tachy at 112 bpm, biatrial enlargement, Rightward axis -CXR 06/12 - No acute infiltrate appreciated bilaterally, pleural effusion or pneumothorax. Crowding of the bronchovascular markings is felt to be a function of poor inspiratory effort. No pulmonary vascular congestion. Limited evaluation of cardiac size. Please see details above. -Chest CT 06/12: No evidence of acute central pulmonary embolus. Cardiomegaly with small pericardial effusion. Multiple small to enlarged mediastinal and small to medium-sized bilateral hilar lymph nodes possibly reactive however follow-up of CT scan in 2 months recommended to assess resolution. There are areas of atelectasis/scarring seen throughout both lower lobes some of which appear nodular in the left lung base as well as nodular opacities-scarring changes scattered throughout the lung apices and upper lung packer right greater than left Patient was diuresed with Lasix IV. His pharmacy, [facility] pharmacy on [facility], was contacted and his home medications were restarted. Patient symptoms improved and he was no longer short of breath saturating 98% on RA. Patient was counseled on importance of taking his medications as directed. He was discharged home on 06/13/18 with the following instructions. Discharge Instructions: Patient is to be discharged home per Dr. Villalta. Patient is to call and schedule an appointment his primary care physician, Dr. Beto Alcantara, to follow up is hospitalization within 1 week. Patient is to take all of his medications as directed. He has been given a prescription of all medications for 1 month. -Aspirin 81 mg take once daily -HCTZ 25 mg take once daily -Losartan 100 mg take once daily -Atorvastatin 80 mg take once daily -Norvasc 10 mg take once daily -Coreg 25 mg PO daily --> made 12.5 BID -Humalog 75/25 25 U twice daily + 10 U HS -Lasix 20mg take once daily as needed for swelling. If patient experiences any new or concerning symptoms, please call Dr. Llamas's office or return to the nearest emergency department. PHYSICAL EXAM Appears: Non-toxic, No Acute Distress, Other (obese) Head Exam: ATRAUMATIC, NORMOCEPHALIC Eye Exam: EOMI ENT Exam: Mucous Membranes Moist Respiratory Exam: Clear to Ausculation Bilateral, NORMAL BREATHING PATTERN. absent: Accessory Muscle Use, Rhonchi, Wheezes, Respiratory Distress Cardiovascular Exam: REGULAR RHYTHM, +S1, +S2 GI & Abdominal Exam: Obese, Soft, Normal Bowel Sounds. absent: Tenderness Extremities Exam: absent: Pedal Edema, Tenderness Neurological Exam: Alert, Awake, Oriented x3 Psychiatric exam: Normal Affect, Normal Mood Skin Exam: Dry, Intact Discharge Exam - Head Exam Head Exam: ATRAUMATIC, NORMOCEPHALIC Discharge Plan - Discharge Medications Prescriptions: amLODIPine [Norvasc] 10 mg PO DAILY #30 tab Aspirin [Aspirin Chewable] 81 mg PO DAILY #30 chew Atorvastatin [Lipitor] 80 mg PO HS #30 tab Carvedilol [Coreg] 12.5 mg PO BID #60 tab Furosemide [Lasix] 20 mg PO DAILY PRN #30 tab PRN Reason: Swelling hydroCHLOROthiazide [Hydrodiuril] 25 mg PO DAILY #30 tab Insulin Lispro Mix 75/25 [HumaLog MIX 75/25] 25 units SC BID #1 vial Losartan [Cozaar] 100 mg PO DAILY #30 tab - Follow Up Plan Condition: FAIR Disposition: HOME/ ROUTINE Instructions: Heart Failure (DC), Heart Failure (GEN), Pacemaker (DC), Pacemaker (GEN), Pulmonary Edema (DC), Pulmonary Edema (GEN), Ascites (DC), Ascites (GEN) Additional Instructions: Patient is to be discharged home per Dr. Villalta. Patient is to call and schedule an appointment his primary care physician, Dr. Beto Alcantara, to follow up is hospitalization within 1 week. Patient is to take all of his medications as directed. He has been given a prescription of all medications for 1 month. -Aspirin 81 mg take once daily -HCTZ 25 mg take once daily -Losartan 100 mg take once daily -Atorvastatin 80 mg take once daily -Norvasc 10 mg take once daily -Coreg 25 mg PO daily --> made 12.5 BID -Humalog 75/25 25 U twice daily + 10 U HS -Lasix 20mg take once daily as needed for swelling. If patient experiences any new or concerning symptoms, please call Dr. Llamas's office or return to the nearest emergency department. Referrals: Beto Alcantara MD [Medical Doctor] - Clinical Quality Measures - CQM - Heart Failure Left Ventricular Function to be assessed after discharge: Yes IRWIN Inhibitor Prescribed: No Contraindication/Reason for not providing: on ARB Beta-Delroy Prescribed: Carvedilol Angiotensin II Receptor Delroy Prescribed: Yes AnticoagulationTherapy for Atrial Fibrillation/Atrialflutter: No Contraindication/Reason for not providing: NA Aldosterone Antagonist Prescribed: No Contraindication/Reason for not providing: NA - pending ECHO results Hydralazine Nitrate Prescribed: No Contraindication/Reason for not providing: NA Implantable Cardioverter Defibrillator Therapy: No Contraindication/Reason for not providing: NA Cardiac Resynchronization Therapy Prescribed: No Contraindication/Reason for not providing: NA Will be discharged to: Home Follow Up Date (must be within 7 days from discharge): 06/20/18 (Patient instructed to call and schedule an appointment with his PCP in within 1 week of discharge.) Follow Up Time: 09:00
[2018-06-13 16:42] VITALS: BP 150/98; PULSE 82; RESP 18; O2SAT 96
--- NOTE | 2018-06-13 19:10 | CARD ---
APPROVED REPORT Date of service: 06/13/2018 EXAM: Two-dimensional and M-mode echocardiogram with Doppler and color Doppler. Other Information Quality : Rhythm : Tachycardia INDICATION Chest Pain Congestive Heart Failure Palpitations RISK FACTORS Hypertension Diabetes Smoking 2D DIMENSIONS IVSd1.1 (0.7-1.1cm)Aortic Root (2D)3.6 (2.0-3.7cm) LVDd6.0 (3.9-5.9cm)PWd1.2 (0.7-1.1cm) LA [id number] (18-58mL)LVDs5.0 (2.5-4.0cm) FS (%) 17.0 %LVEF (%)44.0 (>50%) LVEF (Rubin's)47.83 %IVC0.00 cm M-Mode DIMENSIONS Left Atrium (MM)5.65 (2.5-4.0cm)IVSd0.82 (0.7-1.1cm) Aortic Root3.34 (2.2-3.7cm)LVDd6.39 (4.0-5.6cm) Aortic Cusp Exc.2.10 (1.5-2.0cm)PWd1.20 (0.7-1.1cm) FS (%) 22 %LVDs4.99 (2.0-3.8cm) TAPSE21.00 cmLVEF (%)43 (>50%) Mitral Valve MV E Iqipripj300.8cm/sMV A Lypsyahp40.5cm/sE/A ratio2.6 TDI Lateral E' Peak V6.87cm/sMedial E' Peak V4.67cm/sE/Lateral E'15.7 E/Medial E'23.1 Tricuspid Valve TR Peak [id number]/sTR Peak [id number] LEFT VENTRICLE The Left Ventricle is moderately dilated. There is mild concentric left ventricular hypertrophy. Left ventricle systolic function is mildly impaired. The Ejection Fraction is - 48% There is global hypokinesis of the left ventricle. Transmitral Doppler flow pattern is Grade II-pseudonormal filling dynamics. Tissue Doppler compatible with elevated left atrial pressure. Severe diastolic dysfunction: Grade III- restrictive pattern RIGHT VENTRICLE The right ventricle is mildly dilated. Systolic function is mildly reduced. ATRIA The left atrium is moderately dilated. The right atrium is moderately dilated. AORTIC VALVE The aortic valve is normal in structure. No aortic regurgitation is present. There is no aortic valvular stenosis. MITRAL VALVE The mitral valve is normal in structure. There is no mitral valve regurgitation noted. TRICUSPID VALVE The tricuspid valve is normal in structure. There is mild to moderate tricuspid regurgitation. Right ventricular systolic pressure is estimated at - 47 mmHg. There is moderate pulmonary hypertension. PULMONIC VALVE The pulmonary valve is normal in structure. There is no pulmonic valvular regurgitation. GREAT VESSELS The aortic root is normal in size. The IVC is normal in size and collapses >50% with inspiration. PERICARDIAL EFFUSION There is a trace pericardial effusion seen behind the right atrium. <Conclusion> The left ventricle is moderately dilated with mild concentric hypertrophy. There is global hypokinesis of the left ventricle. Left ventricle systolic function is mildly impaired. Bi-Plane Ejection Fraction is - 48% Severe diastolic dysfunction: Grade III- restrictive pattern. Tissue Doppler compatible with elevated left atrial pressure. The right ventricle is mildly dilated with mildly reduced contractility. Moderate bi-atrial enlargement. There is mild to moderate tricuspid regurgitation. Right ventricular systolic pressure is estimated at - 47 mmHg compatible with moderate pulmonary hypertension. There is a trace pericardial effusion seen behind the right atrium.
[2018-06-14] MEDS ORDERED: Pneumococcal 23-Valent Vaccine IM ONE (10:00)
--- NOTE | 2018-06-14 18:59 | CARD ---
APPROVED REPORT Date of service: 06/12/2018 EKG Measurement Heart [id number] <Conclusion> Sinus tachycardia Biatrial enlargement Rightward axis - Limb leads misplacement cannot be excluded. Please Repeat ST & T wave abnormality: Nonspecifc Abnormal ECG
== END 2018-06-13 16:35 | disposition home or self-care (01) ==
LOC: C.ER 20:32 → C.9E 23:41 → UNDOADMIN 23:41 → C.9E 06-13 16:14 → C.6T 06-13 16:14 → C.9E 06-13 16:45 → C.6T 06-13 16:45
DX: I50.9 Heart failure, unspecified (principal); R07.9 Chest pain, unspecified; I10 Essential (primary) hypertension; E11.9 Type 2 diabetes mellitus without complications; E78.5 Hyperlipidemia, unspecified
CPT/HCPCS: 36600; 71045; 71275; 80053; 80061; 80320; 80324; 80345; 80346; 80349; 80353; 80358; 80361; 81001; 82803; 82948; 83036; 83690; 83735; 83880; 83992; 84100; 84484; 85025; 93005; 93306; 96372; 96374; 96376; 99285; J1650; J1940; Q9967